=== PATIENT | male | born 1980 | race Caucasian/White ===

== ENCOUNTER 2016-11-30 05:02 | Emergency (ER) | payer SELFPAY ==
--- NOTE | ~2016-11-30 | ER ---
PATIENT'S NAME: LUCIE BERNAL [facility] AGE: 36 Y [address] ROOM: [place] [address] LOCATION: [facility] ADMIT DATE: 11/30/2016 ER/Outpatient Report DISCHARGE DATE: 11/30/2016 FAMILY PHYSICIAN: PHYSICIAN, NO ATTENDING PHYSICIAN: Igor Maki Time of Arrival: Admission date and time documented on the medical record. Time of Evaluation: I saw the patient at 0515 hours. CHIEF COMPLAINT: Left groin pain. HISTORY OF PRESENT ILLNESS: The patient is a 36-year-old male, who has had a left groin hernia for about 4- 5 months. Gradually, it has gotten worse and more painful. Presented this morning for evaluation. No urinary symptomatology. No bowel problems. No nausea or vomiting. No back pain. No other injuries. HOME MEDICATIONS: None. ALLERGIES: NONE. SOCIAL HISTORY: The patient smokes 1/2 pack of cigarettes per day. Occasional intake of alcohol. SIGNIFICANT PAST MEDICAL HISTORY: Tobacco abuse and heart murmur. OPERATIONS: None. REVIEW OF SYSTEMS: All systems reviewed by me are negative with the exception of those discussed in the history of present illness. PHYSICAL EXAMINATION: VITAL SIGNS: Temperature 97.8, tympanic; pulse 90; respirations 16; and O2 saturation on room air was 94%. ABDOMEN: Soft, nondistended, nontender. Good bowel tones. PELVIC: The patient has a left groin hernia, it was reducible. IMPRESSION: PATIENT'S NAME: LUCIE BERNAL [facility] AGE: 36 Y [address] ROOM: [place] [address] LOCATION: [facility] ADMIT DATE: 11/30/2016 ER/Outpatient Report DISCHARGE DATE: 11/30/2016 FAMILY PHYSICIAN: PHYSICIAN, NO ATTENDING PHYSICIAN: Igor Maki Left groin hernia. PLAN: The patient was discharged home. Observation. Activity as tolerated. Avoid pushing, pulling, or lifting. I did give him [facility] card for the surgeons, Dr. Kent, Dr. Robert, or Dr. Valencia. He is to call the clinic at 8:30-9:00 this morning to get an appointment with one of the surgeons for consultative exam and then get scheduled for operative correction of his hernia. Discussion ensued with the patient concerning my findings and recommendations, he understands. MD GERALDO CHRISTIANSON/yvonl /[id number] d: 11/30/16641 t: 12/02/16611, OUTPATIENT REPORT
== END 2016-11-30 05:28 | disposition disaster alternative care site (69) ==
LOC: GMED 05:02
DX: K40.90 Unilateral inguinal hernia, without obstruction or gangrene, not specified as recurrent (principal); F17.210 Nicotine dependence, cigarettes, uncomplicated

== ENCOUNTER 2017-01-19 12:15 | Emergency (ER) | payer SELFPAY ==
--- NOTE | ~2017-01-19 | ER ---
PATIENT'S NAME: LUCIE NAPOLES [facility] AGE: 36 Y [address] ROOM: [place] [address] LOCATION: [facility] ADMIT DATE: 01/19/2017 ER/Outpatient Report DISCHARGE DATE: 01/19/2017 FAMILY PHYSICIAN: PHYSICIAN, NO ATTENDING PHYSICIAN: Josh Ortega CHIEF COMPLAINT: Hernia pain. HISTORY OF PRESENT ILLNESS: Mr. Napoles has a 5 to 6 month history of left-sided hernia. He states that he has been seen in the ER for this issue, but was told to follow up. He did not do so secondary to multiple sided reasons. He states over the last week his hernia has been unable to be reduced by himself, because it has been painful and today it is just intolerable. He has not taken any anti-inflammatory medications for this. He recently changed his job and he is having to work harder than before. 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 PAST MEDICAL HISTORY: Documented on the record and reviewed by me. SOCIAL HISTORY: Documented on the record and reviewed by me. MEDICATIONS: Documented on the record and reviewed by me. ALLERGIES: DOCUMENTED ON THE RECORD AND REVIEWED BY ME. REVIEW OF SYSTEMS: All systems were reviewed and negative except as noted in the HPI. PHYSICAL EXAMINATION: VITAL SIGNS: Blood pressure 147/87, pulse 72, respiratory rate 16, temperature 97.5, SpO2 is 96% on room air. Pain is rated 8/10 and 10/10 at max. GENERAL: Age-appropriate male, upright on exam table. No apparent pain or distress. NEUROLOGIC: Awake and alert. GCS 15. No focal deficits. No asymmetry. HEENT: Normocephalic, atraumatic. Eyes are PERRL. Oropharynx is unremarkable. NECK: Appears supple. CHEST: Even and unlabored respirations. PATIENT'S NAME: LUCIE NAPOLES [facility] AGE: 36 Y [address] ROOM: [place] [address] LOCATION: [facility] ADMIT DATE: 01/19/2017 ER/Outpatient Report DISCHARGE DATE: 01/19/2017 FAMILY PHYSICIAN: PHYSICIAN, NO ATTENDING PHYSICIAN: Josh Ortega HEART: Regular rate. ABDOMEN: Appears soft, nontender, nondistended. No rebound or guarding. : There is a left-sided direct inguinal hernia with bulging. No skin changes. Palpable bowel in the hernia. Reducible with minimal difficulty. No clear abdominal wall defects, but laxity at Hesselbach's triangle. No scrotal masses. No abnormalities of the spermatic cord. BACK: Normal to inspection. EXTREMITIES: Warm and well formed. SKIN: Clean, dry, and intact. LABORATORY DATA AND IMAGING STUDIES: None. IMPRESSION: Reducible left direct inguinal hernia. EMERGENCY DEPARTMENT COURSE: The patient was seen and evaluated at bedside. With some manipulation and pressure, the hernia was reducible with minimal discomfort to the patient. I discussed the case with Dr. Valencia, over the phone. The patient was given appropriate followup instructions to make appointment with Surgery [facility] within the next several days. He is to avoid pushing, pulling, exertion as much as possible. He can try some bracing and support devices to prevent the hernia from coming back out. I instructed him that he needs to make himself reduced the hernia as soon as it comes back out if at all possible and come to the ER for reduction if needed. At this time, there is no evidence of bowel obstruction or septic condition. No evidence of incarceration/strangulation. The patient will need to follow up as directed. Tylenol, ibuprofen, and ice for discomfort. All questions were answered and the patient was discharged. MD JOAQUIN BALTAZAR/berenice /[id number] d: 01/19/17 1935 t: 01/23/17 0750, OUTPATIENT REPORT
== END 2017-01-19 13:05 | disposition disaster alternative care site (69) ==
LOC: GMED 12:15
DX: K40.90 Unilateral inguinal hernia, without obstruction or gangrene, not specified as recurrent (principal)